=== PATIENT | female | born 1950 | race Two or more races ===

== ENCOUNTER → 2017-03-27 10:13 | Outpatient (CLI) | payer OTHER ==
[~2017-03-27 10:13] MED LIST: AVAPRO75 MG; HUMALOG100 U/ML; ISOSORBIDE DIN2.5 MG; METFORMIN HCL500 MG; NEURONTIN300 MG; NOVOLOG MIX 70/33 ML; OMEPRAZOLE10 MG; SYNTHROID50 MCG; TOPROL XL25 M1
== END | disposition home or self-care (01) ==
LOC: LAB 10:13
DX: I10 Essential (primary) hypertension (principal); E11.9 Type 2 diabetes mellitus without complications; E03.8 Other specified hypothyroidism; E78.2 Mixed hyperlipidemia

== ENCOUNTER 2017-03-28 07:33 | Outpatient (CLI) | payer OTHER | END 2017-03-28 07:57 | disposition home or self-care (01) | LOC: SONOGRAMA 07:33 → MAMO-SONO 07:33 | DX: Z12.31 Encounter for screening mammogram for malignant neoplasm of breast (principal); Z87.898 Personal history of other specified conditions; N60.11 Diffuse cystic mastopathy of right breast; E07.89 Other specified disorders of thyroid ==

== ENCOUNTER 2017-04-17 09:28 | Outpatient (CLI) | payer OTHER | END 2017-04-17 09:32 | disposition home or self-care (01) | LOC: TOM 09:28 | DX: D21.4 Benign neoplasm of connective and other soft tissue of abdomen (principal) ==

== ENCOUNTER 2017-04-23 09:05 | Outpatient (CLI) | payer OTHER | END 2017-04-23 09:11 | disposition home or self-care (01) | LOC: SONOGRAMA 09:05 | DX: N63.21 Unspecified lump in the left breast, upper outer quadrant (principal) ==

== ENCOUNTER 2017-05-05 09:31 | Inpatient (IN) | payer OTHER ==
[~2017-05-05] VITALS: Ht 162.6 cm; Wt 59.0 kg
== END 2017-05-15 13:23 | disposition home or self-care (01) | DRG 100 ==
LOC: ER 09:31 → SEC-K 05-07 09:01 → SURG 05-07 09:01 → MEDJ 05-07 13:31 → SEC-K 05-07 13:31 → SURG 05-07 20:15
PROC: B030ZZZ Magnetic Resonance Imaging (MRI) of Brain (ICD-10-PCS; principal; 2017-05-07)
PROC: 4A00X4Z Measurement of Central Nervous Electrical Activity, External Approach (ICD-10-PCS; 2017-05-08)
DX: G40.89 Other seizures (principal); E11.00 Type 2 diabetes mellitus with hyperosmolarity without nonketotic hyperglycemic-hyperosmolar coma (NKHHC); N18.4 Chronic kidney disease, stage 4 (severe); I13.0 Hypertensive heart and chronic kidney disease with heart failure and stage 1 through stage 4 chronic kidney disease, or unspecified chronic kidney disease; N39.0 Urinary tract infection, site not specified; I50.32 Chronic diastolic (congestive) heart failure; E11.42 Type 2 diabetes mellitus with diabetic polyneuropathy; E11.22 Type 2 diabetes mellitus with diabetic chronic kidney disease; I25.10 Atherosclerotic heart disease of native coronary artery without angina pectoris; E11.319 Type 2 diabetes mellitus with unspecified diabetic retinopathy without macular edema; Z79.4 Long term (current) use of insulin; J44.9 Chronic obstructive pulmonary disease, unspecified; E11.21 Type 2 diabetes mellitus with diabetic nephropathy; E11.65 Type 2 diabetes mellitus with hyperglycemia; B96.20 Unspecified Escherichia coli [E. coli] as the cause of diseases classified elsewhere; B96.4 Proteus (mirabilis) (morganii) as the cause of diseases classified elsewhere; E86.0 Dehydration; Z78.1 Physical restraint status; E11.51 Type 2 diabetes mellitus with diabetic peripheral angiopathy without gangrene
CPT/HCPCS: 70551

== ENCOUNTER → 2017-05-23 | Emergency (ER) | payer OTHER ==
[~2017-05-23] VITALS: Ht 160 cm; Wt 59.0 kg
== END | disposition home or self-care (01) ==
LOC: ER 10:01
DX: R56.9 Unspecified convulsions (principal)

== ENCOUNTER 2017-07-02 22:11 | Emergency (ER) | payer OTHER ==
[~2017-07-02] VITALS: Ht 160 cm; Wt 58.1 kg
== END 2017-07-03 08:27 | disposition home or self-care (01) ==
LOC: ER 22:11
DX: E11.65 Type 2 diabetes mellitus with hyperglycemia (principal)

== ENCOUNTER 2017-07-23 07:43 | Outpatient (CLI) | payer OTHER | END 2017-07-23 08:00 | disposition home or self-care (01) | LOC: LAB 07:43 | DX: E11.9 Type 2 diabetes mellitus without complications (principal) ==

== ENCOUNTER 2017-09-05 11:25 | Outpatient (CLI) | payer OTHER | END 2017-09-05 11:27 | disposition home or self-care (01) | LOC: RAD 11:25 | DX: M12.852 Other specific arthropathies, not elsewhere classified, left hip (principal); M16.12 Unilateral primary osteoarthritis, left hip ==

== ENCOUNTER 2017-10-05 09:49 | Outpatient (CLI) | payer OTHER | END 2017-10-05 09:57 | disposition home or self-care (01) | LOC: LAB 09:49 | DX: I10 Essential (primary) hypertension (principal); E11.9 Type 2 diabetes mellitus without complications; E03.8 Other specified hypothyroidism; E78.2 Mixed hyperlipidemia ==

== ENCOUNTER 2017-10-12 09:16 | Emergency (ER) | payer OTHER ==
[~2017-10-12] VITALS: Ht 160 cm; Wt 63.5 kg
== END 2017-10-12 20:27 | disposition home or self-care (01) ==
LOC: ER 09:16 → CPU-OBS 09:17 → ER 09:17
DX: R07.89 Other chest pain (principal); I20.0 Unstable angina

== ENCOUNTER 2017-10-23 07:13 | Outpatient (CLI) | payer OTHER | END 2017-10-23 07:26 | disposition home or self-care (01) | LOC: SONOGRAMA 07:13 | DX: R10.84 Generalized abdominal pain (principal) ==

== ENCOUNTER 2017-11-13 21:59 | Inpatient (IN) | payer OTHER ==
[~2017-11-13] VITALS: Ht 162.6 cm; Wt 81.6 kg
== END 2017-11-20 09:28 | disposition home or self-care (01) | DRG 699 ==
LOC: ER 21:59 → MEDI 11-14 18:11 → SEC-K 11-14 18:11 → MEDI 11-14 20:20
DX: E11.21 Type 2 diabetes mellitus with diabetic nephropathy (principal); E11.65 Type 2 diabetes mellitus with hyperglycemia; I13.0 Hypertensive heart and chronic kidney disease with heart failure and stage 1 through stage 4 chronic kidney disease, or unspecified chronic kidney disease; L97.518 Non-pressure chronic ulcer of other part of right foot with other specified severity; Z79.4 Long term (current) use of insulin; E11.22 Type 2 diabetes mellitus with diabetic chronic kidney disease; N18.3 Chronic kidney disease, stage 3 (moderate); I50.9 Heart failure, unspecified; E11.3293 Type 2 diabetes mellitus with mild nonproliferative diabetic retinopathy without macular edema, bilateral; E11.42 Type 2 diabetes mellitus with diabetic polyneuropathy; E11.51 Type 2 diabetes mellitus with diabetic peripheral angiopathy without gangrene; I25.10 Atherosclerotic heart disease of native coronary artery without angina pectoris; J44.9 Chronic obstructive pulmonary disease, unspecified; E87.5 Hyperkalemia; B96.1 Klebsiella pneumoniae [K. pneumoniae] as the cause of diseases classified elsewhere; B96.89 Other specified bacterial agents as the cause of diseases classified elsewhere; B95.61 Methicillin susceptible Staphylococcus aureus infection as the cause of diseases classified elsewhere; B95.1 Streptococcus, group B, as the cause of diseases classified elsewhere; B37.2 Candidiasis of skin and nail; E11.621 Type 2 diabetes mellitus with foot ulcer

== ENCOUNTER 2017-11-25 15:23 | Emergency (ER) | payer OTHER ==
[~2017-11-25] VITALS: Ht 160 cm; Wt 54.4 kg
== END 2017-11-25 20:10 | disposition home or self-care (01) ==
LOC: ER 15:23
DX: E11.65 Type 2 diabetes mellitus with hyperglycemia (principal); N39.0 Urinary tract infection, site not specified

== ENCOUNTER 2017-11-27 20:23 | Inpatient (IN) | payer OTHER ==
[~2017-11-27] VITALS: Ht 157.5 cm; Wt 72.1 kg
== END 2017-12-13 18:13 | DRG 981 ==
LOC: ER 20:23 → MEDI 11-29 06:41 → SEC-K 11-29 06:41 → MEDI 11-29 11:16
PROVIDERS: Specialist
PROC: BT43ZZZ Ultrasonography of Bilateral Kidneys (ICD-10-PCS; 2017-11-29)
PROC: 0Y6P0Z0 Detachment at Right 1st Toe, Complete, Open Approach (ICD-10-PCS; principal; 2017-12-07 11:00)
DX: N17.8 Other acute kidney failure (principal); E11.00 Type 2 diabetes mellitus with hyperosmolarity without nonketotic hyperglycemic-hyperosmolar coma (NKHHC); I13.0 Hypertensive heart and chronic kidney disease with heart failure and stage 1 through stage 4 chronic kidney disease, or unspecified chronic kidney disease; B37.49 Other urogenital candidiasis; L97.518 Non-pressure chronic ulcer of other part of right foot with other specified severity; E11.52 Type 2 diabetes mellitus with diabetic peripheral angiopathy with gangrene; I96 Gangrene, not elsewhere classified; M86.171 Other acute osteomyelitis, right ankle and foot; I50.30 Unspecified diastolic (congestive) heart failure; E11.42 Type 2 diabetes mellitus with diabetic polyneuropathy; Z79.4 Long term (current) use of insulin; E11.22 Type 2 diabetes mellitus with diabetic chronic kidney disease; E11.65 Type 2 diabetes mellitus with hyperglycemia; N18.3 Chronic kidney disease, stage 3 (moderate); E11.21 Type 2 diabetes mellitus with diabetic nephropathy; E11.3213 Type 2 diabetes mellitus with mild nonproliferative diabetic retinopathy with macular edema, bilateral; I25.10 Atherosclerotic heart disease of native coronary artery without angina pectoris; J44.9 Chronic obstructive pulmonary disease, unspecified; D63.1 Anemia in chronic kidney disease; E11.621 Type 2 diabetes mellitus with foot ulcer; L89.151 Pressure ulcer of sacral region, stage 1; E03.8 Other specified hypothyroidism; B96.5 Pseudomonas (aeruginosa) (mallei) (pseudomallei) as the cause of diseases classified elsewhere; B95.1 Streptococcus, group B, as the cause of diseases classified elsewhere; B95.2 Enterococcus as the cause of diseases classified elsewhere; E11.69 Type 2 diabetes mellitus with other specified complication

== ENCOUNTER → 2018-01-03 | Emergency (ER) | payer OTHER ==
[~2018-01-03] VITALS: Ht 152.4 cm; Wt 49.9 kg
== END | disposition home or self-care (01) ==
LOC: ER 10:09
DX: G89.18 Other acute postprocedural pain (principal); M79.674 Pain in right toe(s)

== ENCOUNTER → 2018-01-04 | Emergency (ER) | payer OTHER ==
[~2018-01-04] VITALS: Ht 160 cm; Wt 72.6 kg
== END | disposition left against medical advice (07) ==
LOC: ER 03:06
DX: R41.0 Disorientation, unspecified (principal); F41.8 Other specified anxiety disorders

== ENCOUNTER 2018-01-05 17:39 | Emergency (ER) | payer OTHER ==
[~2018-01-05] VITALS: Ht 157.5 cm; Wt 59.0 kg
== END 2018-01-06 14:12 | disposition home or self-care (01) ==
LOC: ER 17:39
DX: L08.89 Other specified local infections of the skin and subcutaneous tissue (principal); T81.49XA Infection following a procedure, other surgical site, initial encounter; B96.5 Pseudomonas (aeruginosa) (mallei) (pseudomallei) as the cause of diseases classified elsewhere; B95.2 Enterococcus as the cause of diseases classified elsewhere; B96.89 Other specified bacterial agents as the cause of diseases classified elsewhere; Z60.2 Problems related to living alone

== ENCOUNTER 2018-01-22 20:18 | Inpatient (IN) | payer OTHER ==
[~2018-01-22] VITALS: Ht 157.5 cm; Wt 56.7 kg
[2018-02-05] MEDS ORDERED: ARICEPT10 MG PO (07:50)
[2018-02-05] MEDS ORDERED: ISOSORBIDE MONO60 MG PO (07:51)
[2018-02-05] MEDS ORDERED: AVAPRO300 MG PO (07:51)
[2018-02-05] MEDS ORDERED: DEPAKOTE 250 MG PO (07:52)
[2018-02-05] MEDS ORDERED: HYDRALAZINE HCL50 MG PO (07:52)
[2018-02-05] MEDS ORDERED: TRAZODONE HCL50 MG PO (07:52)
== END 2018-02-05 17:49 | disposition home or self-care (01) | DRG 256 ==
LOC: ER 20:18 → SEC-K 01-23 18:12 → MEDI 01-23 18:12 → MEDJ 01-24 18:55 → SEC-K 01-24 19:46 → MEDJ 01-24 19:47 → SEC-K 01-24 23:12 → MEDI 01-25 13:09
PROVIDERS: Specialist
PROC: 0Y6R0Z0 Detachment at Right 2nd Toe, Complete, Open Approach (ICD-10-PCS; principal; 2018-01-30 07:00)
DX: E11.52 Type 2 diabetes mellitus with diabetic peripheral angiopathy with gangrene (principal); I96 Gangrene, not elsewhere classified; M86.671 Other chronic osteomyelitis, right ankle and foot; I50.30 Unspecified diastolic (congestive) heart failure; E11.21 Type 2 diabetes mellitus with diabetic nephropathy; I12.9 Hypertensive chronic kidney disease with stage 1 through stage 4 chronic kidney disease, or unspecified chronic kidney disease; N18.3 Chronic kidney disease, stage 3 (moderate); E11.319 Type 2 diabetes mellitus with unspecified diabetic retinopathy without macular edema; B95.62 Methicillin resistant Staphylococcus aureus infection as the cause of diseases classified elsewhere; B96.1 Klebsiella pneumoniae [K. pneumoniae] as the cause of diseases classified elsewhere; D64.89 Other specified anemias; E11.69 Type 2 diabetes mellitus with other specified complication; E11.65 Type 2 diabetes mellitus with hyperglycemia; I10 Essential (primary) hypertension; E03.8 Other specified hypothyroidism; I25.2 Old myocardial infarction; I25.10 Atherosclerotic heart disease of native coronary artery without angina pectoris; J44.9 Chronic obstructive pulmonary disease, unspecified; Z89.431 Acquired absence of right foot; Z98.61 Coronary angioplasty status; Z79.4 Long term (current) use of insulin; Z86.73 Personal history of transient ischemic attack (TIA), and cerebral infarction without residual deficits